=== PATIENT | male | born 1965 | race Caucasian/White ===

== ENCOUNTER 2017-05-28 12:17 | Emergency (ER) | payer OTHER ==
[~2017-05-28] VITALS: Ht 177.8 cm; Wt 60.0 kg
[2017-05-28 12:28] VITALS: TEMP 36.9; Ht 177.8 cm; Wt 60.0 kg
--- NOTE | 2017-05-28 13:21 | DIAGNOSTIC IMAGING REPORT ---
CHEST ONE VIEW PORTABLE HISTORY: PICC line malfunction. COMPARISON: None. FINDINGS: The heart is normal in size. Right PICC terminates in the proximal SVC. No pneumothorax. Blunting of the left lateral costophrenic sulcus consistent with a small left pleural effusion. The right lung is clear. A few linear densities the left lung base favor atelectasis. Displaced fractures involving the left seventh, eighth, ninth lateral ribs. IMPRESSION: 1. The right PICC terminates in the SVC. 2. Displaced left lower rib fractures with a small left pleural effusion/hemothorax. Of note, the rib fractures have an irregular appearance and could represent pathologic fractures. Electronically signed by: Lincoln Grant M.D. 05/28/2017 1:19 PM Dictated Date/Time: 05/28/2017 1:17 PM
[2017-05-28] MEDS ORDERED: MULT-513 PO (13:27)
[2017-05-28] MEDS ORDERED: OXYC-57 PO (13:27)
[2017-05-28] MEDS ORDERED: SPIR50TA2 PO (13:27)
[2017-05-28] MEDS ORDERED: THIA100T11 PO (13:27)
[2017-05-28] MEDS ORDERED: MIRT15TA53 PO (13:27)
[2017-05-28] MEDS ORDERED: METO25TA3 PO (13:27)
[2017-05-28] MEDS ORDERED: PANT40TA PO (13:27)
[2017-05-28] MEDS ORDERED: NORT25CA PO (13:27)
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
[2017-05-28 14:07] VITALS: BP 127/84; PULSE 94; O2SAT 96
== END 2017-05-28 14:06 | disposition home or self-care (01) ==
LOC: C.EDB 12:19 → C.EDD 14:06
DX: T82.9XXA Unspecified complication of cardiac and vascular prosthetic device, implant and graft, initial encounter (principal); X58.XXXA Exposure to other specified factors, initial encounter; I10 Essential (primary) hypertension; K21.9 Gastro-esophageal reflux disease without esophagitis; J44.9 Chronic obstructive pulmonary disease, unspecified; K74.60 Unspecified cirrhosis of liver; F17.200 Nicotine dependence, unspecified, uncomplicated; Z79.899 Other long term (current) drug therapy